=== PATIENT | female | born 1990 | race Caucasian/White ===

== ENCOUNTER 2018-04-29 18:48 | Emergency (ER) | payer OTHER ==
[2018-04-29 19:10] VITALS: BP 126/80; PULSE 110; RESP 18; TEMP 99
[2018-04-29] MEDS ORDERED: LORazepam 1 MG TAB PO STA (20:08)
--- NOTE | 2018-04-29 20:11 | ED ---
General Adult HPI - General Chief complaint: Anxiety Stated complaint: anxiety Time Seen by Provider: 04/29/18 20:02 Source: patient, RN notes reviewed Mode of arrival: ambulatory Limitations: no limitations - History of Present Illness Initial comments: Patient is a pleasant 27-year-old female presenting to the emergency Department with complaints of anxiety. Patient states she believes she has had several anxiety attacks throughout the day. Patient does have a history of anxiety. Patient lost her medication. Patient has previously been on Ativan and Xanax and Remeron. Patient states usually Xanax works the best for her. Patient denies any suicidal thoughts at this time. Patient was in a different hospital several weeks ago with depression and suicidal thoughts. - Related Data Allergies Allergy/AdvReac Type Severity Reaction Status Date / Time No Known Allergies Allergy Verified 04/29/18 19:09 Review of Systems ROS Statement: Those systems with pertinent positive or pertinent negative responses have been documented in the HPI. ROS Other: All systems not noted in ROS Statement are negative. Constitutional: Denies: fever Eyes: Denies: eye pain ENT: Denies: ear pain Respiratory: Denies: cough Cardiovascular: Denies: edema Endocrine: Denies: fatigue Gastrointestinal: Denies: vomiting Genitourinary: Denies: dysuria Musculoskeletal: Denies: back pain Skin: Denies: rash Psychiatric: Reports: anxiety. Denies: suicidal thoughts Past Medical History Past Medical History: No Reported History History of Any Multi-Drug Resistant Organisms: MRSA Date of last positivie culture/infection: 2009 Past Surgical History: No Surgical Hx Reported Past Psychological History: Anxiety, Bipolar Smoking Status: Current every day smoker Past Alcohol Use History: Rare Past Drug Use History: Marijuana General Exam Limitations: no limitations General appearance: alert, in no apparent distress Head exam: Present: atraumatic Eye exam: Present: normal appearance Neck exam: Present: normal inspection Respiratory exam: Present: normal lung sounds bilaterally Cardiovascular Exam: Present: tachycardia GI/Abdominal exam: Present: soft. Absent: tenderness Extremities exam: Present: normal inspection Neurological exam: Present: alert Psychiatric exam: Present: anxious Skin exam: Present: normal color Course Vital Signs 04/29/18 19:07 Temperature 99.0 F Pulse Rate 110 H Respiratory 18 Rate Blood Pressure 126/80 O2 Sat by Pulse 99 Oximetry Disposition Clinical Impression: Acute anxiety Disposition: HOME SELF-CARE Condition: Stable Instructions: Generalized Anxiety Disorder (ED) Additional Instructions: Please follow-up with your counseling center and primary care physician in the next day or 2 for recheck. Return for thoughts of self-harm, worsening symptoms , or other concerns. Is patient prescribed a controlled substance at d/c from ED?: No Referrals: Horacio Garcia MD [Primary Care Provider] - 1-2 days Time of Disposition: 20:10
== END 2018-04-29 20:15 | disposition home or self-care (01) ==
LOC: EC 18:48
DX: F41.9 Anxiety disorder, unspecified (principal); F17.200 Nicotine dependence, unspecified, uncomplicated; Z86.14 Personal history of Methicillin resistant Staphylococcus aureus infection
CPT/HCPCS: 99283

== ENCOUNTER 2020-05-04 01:10 | Emergency (ER) | payer OTHER ==
[2020-05-04 01:18] VITALS: BP 129/77; TEMP 98.3
[2020-05-04 01:48] VITALS: RESP 16
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
[2020-05-04 02:02] VITALS: PULSE 128
== END 2020-05-04 02:03 | disposition home or self-care (01) ==
LOC: EC 01:10
DX: R05 Cough (principal); F17.200 Nicotine dependence, unspecified, uncomplicated; Z86.14 Personal history of Methicillin resistant Staphylococcus aureus infection; Z02.83 Encounter for blood-alcohol and blood-drug test
CPT/HCPCS: 99283; U0003

== ENCOUNTER 2021-03-21 12:49 | Emergency (ER) | payer OTHER ==
[2021-03-21 13:17] VITALS: TEMP 98.5
[2021-03-21 13:43] LABS: Amphetamine Screen,Urine Not Detected (NotDetected); Barbiturate Screen,Urine Not Detected (NotDetected); Benzodiazepines Screen,Urine Detected (NotDetected); Cocaine Screen,Urine Detected (NotDetected); Methadone Screen, Urine Not Detected (NotDetected); Opiate Screen,Urine Detected (NotDetected); Oxycodone Screen, Urine Not Detected (NotDetected); Phencyclidine Screen,Urine Not Detected (NotDetected); Tricyclic Antidepressant,Urine Not Detected (NotDetected); Urn Cannabinoid Scrn Not Detected (NotDetected)
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
[2021-03-21 21:41] VITALS: BP 118/71; PULSE 87; RESP 18
== END 2021-03-21 21:42 | disposition home or self-care (01) ==
LOC: EC 12:49
DX: F39 Unspecified mood [affective] disorder (principal); R45.851 Suicidal ideations; F31.9 Bipolar disorder, unspecified; F41.9 Anxiety disorder, unspecified; F17.200 Nicotine dependence, unspecified, uncomplicated; F12.90 Cannabis use, unspecified, uncomplicated
CPT/HCPCS: 80306; 82075; 99285